=== PATIENT | female | born 1990 | race Caucasian/White ===

== ENCOUNTER 2020-09-23 16:33 | Emergency (ER) | payer MEDICAID, SELFPAY ==
[2020-09-23 16:57] VITALS: BP 119/60; PULSE 59; RESP 20; TEMP 36.4; O2SAT 98
--- NOTE | 2020-09-23 17:05 | W.ED.GENAD ---
Discharge Plan Disposition Patient Disposition: HOME Condition: Good Discharge Details Clinical Impression: Acute pain of right knee, Patellar maltracking Primary Care Provider: Unknown,Unknown ED Provider: Becca Cordova Home Meds and New Rx's Prescriptions: Continued methadone 10 mg/5 mL solution 85 mg PO DAILY RF: 0 Mirena 20 mcg/24 hours (6 yrs) 52 mg Intrauterine Device 1 device INTRAUTERINE ONCE RF: 0 Discharge Instructions Instructions: Knee Pain (ED) Additional Instructions: Your imaging shows patellar maltracking. This could contribute to your chronic knee pain as well as the acute discomfort. Please encourage rest, ice, elevation. Please continue with Tylenol and/or ibuprofen as needed for discomfort. A referral for physical therapy is attached, please call tomorrow to schedule appointment. You may continue with brace to help with discomfort. If he develop fevers/chills, rash, increased pain or other new/worsening symptoms to seek care urgently once again. Otherwise, please follow-up with primary care in 2 weeks for reevaluation Care management will be in touch regarding establishing local primary care Stand Alone Forms: Physical Therapy Referral Discharge Data Discharge Date/Time-TO BE ENTERED AT DEPARTURE: 09/23/20 18:50 Medical Decision Making Patient is a pleasant 30-year-old female presented to complaint of right knee pain. She reports the pain began insidiously yesterday morning. Awoke with the discomfort. States that throughout the course the day the pain improved. Reports that she again woke with her discomfort this morning and noted some swelling. States the pain is persisted throughout the day today. No fevers or chills. States that she does have chronic issues with the knees and is a always have a low level of discomfort. She denies overexerting herself, any type of mild injuries. She is not taking anything for her discomfort. Denies any numbness or tingling. No change in skin. On exam, patient appears nontoxic. Vital signs are stable. Exam the right lower extremity significant for slight swelling compared to the contralateral thigh but no notable interarticular effusion. No erythema or warmth. Ligamentously intact. Full extension, flexion to 90 degrees. Will give Tylenol and ibuprofen to help with discomfort. Plan for x-ray. COMPARISON: No relevant prior studies available. FINDINGS: Bones/joints: No acute fracture or dislocation. Soft tissues: No large soft tissue abnormality identified. IMPRESSION: No acute findings. Reviewed the images and concern for patellar maltracking which could account for the patient's chronic knee discomfort, particularly when squatting down. Patient and I discussed these findings. Encourage rest, ice, elevation. Tylenol and/or ibuprofen. To help with the swelling and acute discomfort as well as the patient's subjective instability, plan to place patient in a brace. Will refer to primary care for follow-up in 2 weeks for reevaluation. Return precautions were discussed. Will refer to physical therapy. All of her questions and concerns were addressed, she is in agreement with this plan. HPI General Mode of arrival: ambulatory. Date/Time Provider Initiated Documentation: 09/23/20 16:48. Limitations to Documentation: no limitations. Information obtained by: patient and RN notes reviewed. History of Present Illness 30 year old F presents to the emergency department with the chief complaint of right knee pain, described as moderate, with intensity rated at 6. Quality is described as aching, and is localized to the right and lower extremity. Patient reports no radiation. Patient started experiencing this day(s) (1) and it has been intermittent. No relieving factors improve symptom(s), and Immobilization improves symptom(s), Movement worsens symptoms . Patient notes no other symptoms.; denies fever/chills. Patient did receive the following treatments prior to arrival, none Related Data Home Medications Medication Instructions Recorded Confirmed methadone 10 mg/5 mL oral solution 85 mg PO DAILY ml 12/21/19 09/23/20 Mirena 1 device INTRAUTERINE ONCE 09/23/20 09/23/20 Allergies Allergy/AdvReac Type Severity Reaction Status Date / Time No Known Allergies Allergy Verified 12/21/19 12:37 General Stated Complaint: Orthopedic TAMIA: 4 Review of Systems Constitutional Constitutional: Reports as per HPI, Denies chills, Denies fever(s), Denies headache(s) and Denies weakness ENT Ears, Nose, Mouth, and Throat: Denies headache(s) Cardiovascular Cardiovascular: Reports as per HPI Respiratory Respiratory: Reports as per HPI and Denies cough Musculoskeletal Musculoskeletal: Reports as per HPI and Denies tingling Integumentary/Breasts Skin/Breast: Reports as per HPI, Denies rash and Denies wounds Neurologic Neurologic: Reports as per HPI, Denies headache(s), Denies tingling, Denies paresthesias and Denies weakness [facility] Medical History (Updated 09/23/20 @ 18:29 by ROSANA Cormier) Asthma Intermittent PRN Albuterol Hepatitis C carrier History of substance abuse Methadone BERT Gray Mixed anxiety and depressive disorder [facility]--Fluoxetine, Hydroxyzine RXs Family History Father Substance abuse Heart disease Hypertension Mother Anxiety Cervical cancer Depression Brother Anxiety Depression Other Breast cancer Social History Smoking/Tobacco Use Status: Current every day Smoking risk assessment performed?: Yes Alcohol Intake: never Drug use: Current Sobriety Substance use type: marijuana Adopted: No Caregiver/Support person: No Foster care: No Housing: house Do you need help understanding health information?: Rarely current occupation: UnEmployed Sexually active: Yes Do you think of yourself as: straight/heterosexual Current gender identity: female Do you feel safe at home: Yes Do you feel safe in your relationship?: Yes Exam Const General: cooperative, healthy appearing, comfortable, no acute distress, well developed and well groomed Nutritional Appearance: average body habitus and well nourished Orientation: alert and awake Resp Effort & Inspection: normal respiratory effort, able to speak in complete sentences and no respiratory distress Cardio Rate: regular rate Rhythm: regular rhythm Skin General skin exam: no rashes or lesions noted Lesions: no lesions Rashes: no rashes Trauma: no lacerations or abrasions Neuro General: patient alert and patient awake Cognition: normal cognition Speech: speech normal Gait: antalgic Motor: muscle tone normal throughout Sensory Exam: no sensory deficits noted Extrem Right lower extremity: normal to inspection, normal capillary refill, hip/thigh Details: normal to inspection; no tenderness and no swelling, knee Details: normal to inspection, tenderness (diffusely tender), swelling (minimal swelling compared to contralateral side, no focal swelling), normal ROM (able to get to full extenion, flexion limited to 90) and knee ligament exam normal Details: anterior drawer test normal, posterior drawer test normal, valgus stress test normal and varus stress test normal; no abrasions, no lacerations, no ecchymosis, no crepitus and no deformity, lower leg Details: normal to inspection and no edema; no erythema, no tenderness, no localized swelling and no palpable cords and ankle Details: normal to inspection and normal ROM; no tenderness and no swelling Psych Appearance: grossly normal and well kempt Mental Status: mental status grossly normal Speech and Movement: speech and movement normal Course Vital Signs Vital signs: Vital Signs Temperature 36.4 C L 09/23/20 16:57 Pulse 59 L 09/23/20 16:57 Respiratory Rate 20 09/23/20 16:57 Blood Pressure 119/60 09/23/20 16:57 Pulse Oximetry 98 09/23/20 16:57 Temperature 36.4 C L 09/23/20 16:57 Temperature Source Skin 09/23/20 16:57 Pulse 59 L 09/23/20 16:57 Respiratory Rate 20 09/23/20 16:57 Respiratory Effort Non-Labored 09/23/20 17:01 Blood Pressure 119/60 09/23/20 16:57 Blood Pressure Position Sitting 09/23/20 16:57 Pulse Oximetry 98 09/23/20 16:57 Oxygen Delivery Method Room Air 09/23/20 16:57 Oxygen Flow Rate 0 09/23/20 16:57 Pain Level 6 09/23/20 16:57
--- NOTE | 2020-09-23 17:30 | DI.RAD_ITS ---
Exam(s) XR KNEE RT 4V AP,LAT,SHERIN,PAT EXAM: XR KNEE RT 4V AP,LAT,SHERIN,PAT CLINICAL HISTORY: right knee pain, swelling. TECHNIQUE: 2D digital imaging was performed. COMPARISON: No exams were available for comparison FINDINGS: BONES: No acute fracture is present. No bony destructive lesion is seen. JOINTS: The knee is normally aligned. There is a small joint effusion. SOFT TISSUE: Normal. IMPRESSION: Small joint effusion. DATA REPOSITORY: RADIATION DOSE DELIVERED:
[2020-09-23] MEDS: Ibuprofen 600 MG TAB PO (17:58)
[2020-09-23] MEDS: Acetaminophen 500 MG TAB 1000 MG PO (17:59)
--- NOTE | 2020-09-23 18:27 | DI.VRAD_ITS ---
PROCEDURE INFORMATION: Exam: XR Left Knee Exam date and time: 09/23/2020 5:38 PM Age: 30 years old Clinical indication: Pain; Knee; Right; Additional info: No trauma, swelling increasing over 12 hrs TECHNIQUE: Imaging protocol: XR Left knee. Views: 4 or more views. COMPARISON: No relevant prior studies available. FINDINGS: Bones/joints: No acute fracture or dislocation. Soft tissues: No large soft tissue abnormality identified. IMPRESSION: No acute findings. Dictated and Authenticated by: Susanne Canas MD. Ordering:YOSELYN Hudson MD
--- NOTE | 2020-09-23 19:07 | NUR.NOTE ---
Nursing Note: referral to cm for follow up for knee 1-2weeks. MG
== END 2020-09-23 18:50 | disposition home or self-care (01) ==
PROVIDERS: Emergency Provider Physician Assistant
DX: M25.561 Pain in right knee (principal); M22.8X1 Other disorders of patella, right knee
CPT/HCPCS: 99283; 73564

== ENCOUNTER 2023-10-21 15:55 | Outpatient (REF) | payer MEDICAID, SELFPAY | END 2023-10-21 15:56 | disposition home or self-care (01) | LOC: LBN 15:55 | PROVIDERS: Visit Provider Physician Assistant Medical | DX: L98.9 Disorder of the skin and subcutaneous tissue, unspecified (principal) | CPT/HCPCS: 87070; 87205 ==

== ENCOUNTER 2024-08-02 18:25 | Outpatient (REF) | payer MEDICAID, SELFPAY | END 2024-08-02 18:26 | disposition home or self-care (01) | LOC: NCHCN 18:25 | PROVIDERS: Visit Provider Physician Assistant | DX: L98.9 Disorder of the skin and subcutaneous tissue, unspecified (principal); A40.0 Sepsis due to streptococcus, group A | CPT/HCPCS: 87077; 87070; 87205 ==